=== PATIENT | female | born 1950 | race Caucasian/White ===

== ENCOUNTER 2017-09-14 05:54 | Inpatient (IN) | payer MEDICARE, OTHER ==
[2017-09-14] MEDS ORDERED: EPHEDrine SULFATE 50 MG/5 ML SYG IV (06:30)
[2017-09-14] MEDS ORDERED: DIPHENHYDRAMINE 50 MG INJ IV (06:30)
[2017-09-14] MEDS ORDERED: morphine (1 MG/ML) 10ML SYRINGE IV ×3 (06:30)
[2017-09-14] MEDS ORDERED: hydrALAzine 20 MG INJ IV (06:30)
[2017-09-14] MEDS ORDERED: HYDROmorphONE (0.2 MG/ML) 10ML SYG IV ×3 (06:30)
[2017-09-14] MEDS ORDERED: MEPERIDINE 25 MG INJ IV (06:30)
[2017-09-14] MEDS ORDERED: ATROPINE 1 MG/10 ML SYRINGE IV (06:30)
[2017-09-14] MEDS ORDERED: MIDAZOLAM 1 MG/ML 2 ML INJ IV (06:30)
[2017-09-14] MEDS ORDERED: LABETALOL HCL 20MG INJ IV (06:30)
[2017-09-14] MEDS ORDERED: FENTAnyl 50 MCG/ML VIAL IV (06:30)
[2017-09-14] MEDS ORDERED: OXYCODONE/ACETAMINOPHEN (5/325) TAB PO ×2 (06:30)
[2017-09-14] MEDS ORDERED: ONDANSETRON 4 MG INJ IV ×2 (06:30→15:00)
[2017-09-14 06:52] LABS: ADD MAN DIFF? NO
[2017-09-14] MEDS ORDERED: CEFAZOLIN 1 GM INJ (07:00)
[2017-09-14 07:04] LABS: BASOPHILS % 0.7 % (0.0-2.0); EOSINOPHILS # 0.3 10^3/ul (0.0-0.5); HEMOGLOBIN 14.6 g/dl (12.0-16.0); LYMPHOCYTES # 1.7 10^3/ul (0.8-2.9); LYMPHOCYTES % 29.5 % (15.0-51.0); MEAN CORPUSCULAR HEMOGLOBIN 33.4 pg (29.0-33.0); MEAN CORPUSCULAR HGB CONC 33.2 g/dl (32.0-37.0); MEAN CORPUSCULAR VOLUME 100.7 fl (82.0-101.0); MEAN PLATELET VOLUME 8.9 fl (7.4-10.4); MONOCYTE # 0.4 10^3/ul (0.3-0.9); NEUTROPHIL # 3.4 10^3/ul (1.6-7.5); NEUTROPHILS % 57.6 % (39.0-77.0); PLATELET COUNT 242 10^3/UL (140-415); RED BLOOD COUNT 4.37 10^6/ul (4.20-5.40); RED CELL DISTRIBUTION WIDTH 12.1 % (11.5-14.5)
[2017-09-14 07:04] LABS: WHITE BLOOD COUNT 5.8 10^3/ul (4.8-10.8)
[2017-09-14] MEDS ORDERED: HEPARIN 1000 UNITS/ML 10 ML INJ ×2 (07:17→08:37)
[2017-09-14] MEDS ORDERED: THROMBIN 5000 UNIT VIAL (07:17)
[2017-09-14] MEDS ORDERED: LIDOCAINE 1% (MPF) 30 ML INJ (07:17)
[2017-09-14] MEDS ORDERED: GELATIN SIZE 100 SPONGE (07:17)
[2017-09-14 07:29] LABS: ALANINE AMINOTRANSFERASE 26 IU/L (13-69); ALBUMIN 4.2 g/dl (3.3-4.9); ALKALINE PHOSPHATASE 56 IU/L (42-121); ANION GAP 14 (8-16); ASPARTATE AMINO TRANSFERASE 23 IU/L (15-46); BILIRUBIN,INDIRECT 0.4 mg/dl (0-1.1); BILIRUBIN,TOTAL 0.4 mg/dl (0.2-1.3); CARBON DIOXIDE 26 mmol/L (21-31); CHLORIDE 108 mmol/L (97-110); GLUCOSE 107 mg/dl (70-220); INR 0.87; PROTIME 11.9 Sec (11.9-14.9); PT RATIO 0.9; TOTAL PROTEIN 7.2 g/dl (6.1-8.1)
[2017-09-14 07:30] LABS: PARTIAL THROMBOPLASTIN TIME 26.8 Sec (25.0-35.0)
[2017-09-14 07:33] LABS: BLOOD UREA NITROGEN 14 mg/dl (7-20); CALCIUM 9.2 mg/dl (8.4-10.2); SODIUM 144 mmol/L (135-144)
[2017-09-14] MEDS: HEPARIN 1000 UNITS/ML 10 ML INJ IRR (07:45)
[2017-09-14] MEDS: GELATIN SIZE 100 SPONGE TOP (07:45)
[2017-09-14] MEDS: THROMBIN 5000 UNIT VIAL TOP (07:45)
[2017-09-14] MEDS ORDERED: ROCURONIUM 50 MG INJ (08:01)
[2017-09-14] MEDS ORDERED: ONDANSETRON 4 MG INJ (08:01)
[2017-09-14] MEDS ORDERED: NEOSTIGMINE 3 MG/3 ML SYRINGE (08:01)
[2017-09-14] MEDS ORDERED: MIDAZOLAM 1 MG/ML 2 ML INJ ×2 (08:01→08:41)
[2017-09-14] MEDS ORDERED: GLYCOPYRROLATE 0.4 MG INJ (08:01)
[2017-09-14] MEDS ORDERED: PROPOFOL 20 ML (08:01)
[2017-09-14] MEDS ORDERED: LIDOCAINE 2% (SDV) 5 ML INJ (08:01)
[2017-09-14] MEDS ORDERED: FENTAnyl 50 MCG/ML VIAL ×2 (08:01→08:54)
[2017-09-14] MEDS ORDERED: DEXAMETHASONE 4 MG/ML 1 ML INJ (08:02)
[2017-09-14] MEDS ORDERED: ALBUTEROL 0.083% (NEB) 2.5 MG/3 ML AMP (09:19)
[2017-09-14] MEDS ORDERED: FLUMAZENIL 0.5 MG INJ (09:30)
[2017-09-14] MEDS ORDERED: NALOXONE (0.4 MG/ML) INJ (09:30)
[2017-09-14] MEDS: LACTATED RINGER'S 1,000 ML IV ×2 (09:34→17:54)
[2017-09-14] MEDS ORDERED: niCARdipine 50 MG in SOD CHLORIDE 0.9% 480 ML IV (10:00)
[2017-09-14] MEDS ORDERED: ACETAMINOPHEN 325 MG TAB PO ×2 (10:00→15:00)
[2017-09-14] MEDS ORDERED: IBUPROFEN 600 MG TAB PO (10:00)
[2017-09-14] MEDS: FENTAnyl 50 MCG/ML VIAL IV (10:18)
[2017-09-14] MEDS ORDERED: LACTATED RINGER'S 500 ML IV (10:30)
[2017-09-14] MEDS ORDERED: NACL 0.9% 3 ML SYG IV (15:00)
[2017-09-14] MEDS ORDERED: DOCUSATE SODIUM 100 MG CAP PO (15:00)
[2017-09-14] MEDS: ASPIRIN (EC) 81 MG TAB PO (17:51)
[2017-09-14] MEDS: SALMETEROL/FLUTICASONE 250/50 INHA INH (21:00)
[2017-09-14] MEDS: RANITIDINE 150 MG TAB PO (21:50)
[2017-09-14] MEDS: ATORVASTATIN 40 MG TAB PO (21:50)
[2017-09-15] MEDS: SALMETEROL/FLUTICASONE 250/50 INHA INH ×3 (02:14→20:27)
[2017-09-15] MEDS: LACTATED RINGER'S 1,000 ML IV (04:13)
[2017-09-15 05:48] LABS: ADD MAN DIFF? NO
[2017-09-15 06:01] LABS: BASOPHILS % 0.1 % (0.0-2.0); EOSINOPHILS % 0.2 % (0.0-7.0); HEMATOCRIT 38.8 % (37.0-47.0); HEMOGLOBIN 12.8 g/dl (12.0-16.0); LYMPHOCYTES # 1.5 10^3/ul (0.8-2.9); LYMPHOCYTES % 18.6 % (15.0-51.0); MEAN CORPUSCULAR HEMOGLOBIN 33.2 pg (29.0-33.0); MEAN CORPUSCULAR VOLUME 100.8 fl (82.0-101.0); MEAN PLATELET VOLUME 8.8 fl (7.4-10.4); MONOCYTE # 0.7 10^3/ul (0.3-0.9); NEUTROPHILS % 72.9 % (39.0-77.0); PLATELET COUNT 200 10^3/UL (140-415); RED BLOOD COUNT 3.85 10^6/ul (4.20-5.40); RED CELL DISTRIBUTION WIDTH 12.1 % (11.5-14.5)
[2017-09-15 06:01] LABS: WHITE BLOOD COUNT 8.3 10^3/ul (4.8-10.8)
[2017-09-15 06:26] LABS: ALANINE AMINOTRANSFERASE 21 IU/L (13-69); ALBUMIN 3.5 g/dl (3.3-4.9); ALBUMIN/GLOBULIN RATIO 1.29; ALKALINE PHOSPHATASE 48 IU/L (42-121); ANION GAP 10 (8-16); ASPARTATE AMINO TRANSFERASE 16 IU/L (15-46); BILIRUBIN,INDIRECT 0.3 mg/dl (0-1.1); BILIRUBIN,TOTAL 0.3 mg/dl (0.2-1.3); BLOOD UREA NITROGEN 12 mg/dl (7-20); CALCIUM 8.9 mg/dl (8.4-10.2); CARBON DIOXIDE 30 mmol/L (21-31); CHLORIDE 104 mmol/L (97-110); CHOL/HDL RATIO 2.9 RATIO; CHOLESTEROL 182 mg/dl (100-200); CREATININE 0.63 mg/dl (0.44-1.00); GLUCOSE 111 mg/dl (70-220); HDL CHOLESTEROL 61 mg/dl (35-98); LDL CHOLESTEROL,CALCULATED 96 mg/dl; MAGNESIUM 1.8 mg/dl (1.7-2.5); PHOSPHORUS 4.1 mg/dl (2.5-4.9); SODIUM 140 mmol/L (135-144); TOTAL PROTEIN 6.2 g/dl (6.1-8.1); TRIGLYCERIDES 125 mg/dl (0-149)
[2017-09-15 06:46] LABS: THYROID STIMULATING HORMONE 0.486 MIU/L (0.465-4.680)
[2017-09-15] MEDS ORDERED: hydrALAzine 20 MG INJ (07:51)
[2017-09-15] MEDS: hydrALAzine 20 MG INJ IV (07:58)
[2017-09-15] MEDS: GABAPENTIN 300 MG CAP PO (08:15)
[2017-09-15] MEDS: ASPIRIN (EC) 81 MG TAB PO (08:15)
[2017-09-15] MEDS: ALBUTEROL/IPRATROPIUM (NEB) 3 ML AMP HHN ×2 (16:46→19:28)
[2017-09-15] MEDS: ATORVASTATIN 40 MG TAB PO (20:27)
[2017-09-15] MEDS: RANITIDINE 150 MG TAB PO (20:27)
[2017-09-16] MEDS: ALBUTEROL/IPRATROPIUM (NEB) 3 ML AMP HHN (08:06)
[2017-09-16] MEDS: SALMETEROL/FLUTICASONE 250/50 INHA INH (08:13)
[2017-09-16] MEDS: GABAPENTIN 300 MG CAP PO (08:13)
[2017-09-16] MEDS: ASPIRIN (EC) 81 MG TAB PO (08:13)
[2017-09-16] MEDS: HYDROCODONE/APAP (5/325) TAB PO (08:14)
== END 2017-09-16 12:47 | disposition home health service (06) | DRG 39 ==
LOC: REC 05:54 → ICU 15:49 → TEL 09-15 14:00
PROC: 03CL0ZZ Extirpation of Matter from Left Internal Carotid Artery, Open Approach (ICD-10-PCS; principal; 2017-09-14 08:00)
DX: I65.22 Occlusion and stenosis of left carotid artery (principal); Z86.73 Personal history of transient ischemic attack (TIA), and cerebral infarction without residual deficits; I10 Essential (primary) hypertension; E78.5 Hyperlipidemia, unspecified; Z72.0 Tobacco use; F32.9 Major depressive disorder, single episode, unspecified; J44.9 Chronic obstructive pulmonary disease, unspecified; M16.10 Unilateral primary osteoarthritis, unspecified hip; M17.9 Osteoarthritis of knee, unspecified; Z90.710 Acquired absence of both cervix and uterus
CPT/HCPCS: 71045; 80053; 80061; 83036; 83735; 84100; 84443; 85025; 85610; 85730; 87081; 88304; 94640; 94664

== ENCOUNTER 2017-09-17 16:50 | Emergency (ER) | payer MEDICARE, OTHER ==
[2017-09-17] MEDS: morphine 4 MG/ML VIAL IV (17:20)
[2017-09-17] MEDS: CEFTRIAXONE 1 GM/50 ML (PMX) 50 ML IVPB (17:20)
[2017-09-17 17:32] LABS: ADD MAN DIFF? NO
[2017-09-17 17:33] LABS: WHITE BLOOD COUNT 9.7 10^3/ul (4.8-10.8)
[2017-09-17 17:33] LABS: BASOPHILS % 0.3 % (0.0-2.0); EOSINOPHILS # 0.1 10^3/ul (0.0-0.5); EOSINOPHILS % 0.5 % (0.0-7.0); HEMATOCRIT 43.1 % (37.0-47.0); HEMOGLOBIN 14.4 g/dl (12.0-16.0); LYMPHOCYTES # 0.9 10^3/ul (0.8-2.9); LYMPHOCYTES % 9.1 % (15.0-51.0); MEAN CORPUSCULAR HEMOGLOBIN 33.3 pg (29.0-33.0); MEAN CORPUSCULAR HGB CONC 33.4 g/dl (32.0-37.0); MEAN CORPUSCULAR VOLUME 99.5 fl (82.0-101.0); MEAN PLATELET VOLUME 8.3 fl (7.4-10.4); MONOCYTE # 0.5 10^3/ul (0.3-0.9); MONOCYTES % 5.5 % (0.0-11.0); NEUTROPHIL # 8.2 10^3/ul (1.6-7.5); NEUTROPHILS % 84.1 % (39.0-77.0); PLATELET COUNT 188 10^3/UL (140-415); RED BLOOD COUNT 4.33 10^6/ul (4.20-5.40); RED CELL DISTRIBUTION WIDTH 11.4 % (11.5-14.5)
[2017-09-17 17:59] LABS: ANION GAP 15 (8-16); BLOOD UREA NITROGEN 16 mg/dl (7-20); CARBON DIOXIDE 26 mmol/L (21-31); CHLORIDE 94 mmol/L (97-110); GLUCOSE 136 mg/dl (70-220); POTASSIUM 4.1 mmol/L (3.5-5.1); SODIUM 131 mmol/L (135-144)
[2017-09-17 18:06] LABS: C-REACTIVE PROTEIN < 0.5 mg/dl (0.0-0.9)
[2017-09-17 19:34] LABS: ERYTHROCYTE SEDIMENTATION RATE 5 mm/Hr (0-30)
[2017-09-17] MEDS: HYDROCODONE/APAP (5/325) TAB PO (20:56)
== END 2017-09-17 20:59 | disposition left against medical advice (07) ==
LOC: E/R 16:50
DX: M25.431 Effusion, right wrist (principal); L03.113 Cellulitis of right upper limb; M54.2 Cervicalgia; I10 Essential (primary) hypertension; J44.9 Chronic obstructive pulmonary disease, unspecified; Z79.82 Long term (current) use of aspirin; Z87.891 Personal history of nicotine dependence
CPT/HCPCS: 36415; 73100; 80048; 85025; 85651; 86140; 96374; 96375; 99284-25